=== PATIENT | female | born 1970 | race Caucasian/White ===

== ENCOUNTER → 2018-11-11 | Outpatient (CLI) | payer OTHER | LOC: CIMAGING 07:16 | PROVIDERS: ATTEND Family Medicine | DX: D25.1 Intramural leiomyoma of uterus (principal); N83.292 Other ovarian cyst, left side; N92.0 Excessive and frequent menstruation with regular cycle; N95.1 Menopausal and female climacteric states | CPT/HCPCS: 76856-PO ==